=== PATIENT | male | born 1985 | race Caucasian/White ===

== ENCOUNTER 2018-08-28 12:36 | Emergency (ER) | payer SELFPAY ==
[~2018-08-28] VITALS: Ht 180.3 cm; Wt 155.6 kg
[2018-08-28 12:44] VITALS: BP 154/87
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
--- NOTE | 2018-08-28 13:11 | NUR ---
DR JOSEPH AT BEDSIDE
[2018-08-28] MEDS ORDERED: IBUPROFEN 400 MG TAB PO ONE (13:15)
[2018-08-28 13:30] VITALS: BP 156/85
--- NOTE | 2018-08-28 13:30 | NUR ---
Patient discharged with v/s stable. Written and verbal after care instructions given and explained. Patient verbalized understanding. Ambulatory with steady gait. All questions addressed prior to discharge. Advised to follow up with PMD REGARDING BLOOD PRESSURE. PT GIVEN EXCUSE FOR WORK.
== END 2018-08-28 13:30 | disposition home or self-care (01) ==
LOC: MED 12:36
DX: S29.012A Strain of muscle and tendon of back wall of thorax, initial encounter (principal); M79.631 Pain in right forearm; M79.632 Pain in left forearm; R03.0 Elevated blood-pressure reading, without diagnosis of hypertension; W22.12XA Striking against or struck by front passenger side automobile airbag, initial encounter; V49.49XA Driver injured in collision with other motor vehicles in traffic accident, initial encounter; Y93.89 Activity, other specified; Y92.488 Other paved roadways as the place of occurrence of the external cause; Y99.8 Other external cause status
CPT/HCPCS: 99282